=== PATIENT | male | born 1985 | race Caucasian/White ===

== ENCOUNTER 2021-06-30 18:56 | Emergency (ER) | payer OTHER ==
[2021-06-30] MEDS ORDERED: AUGMENTIN 875-1 EACH PO (19:32)
== END 2021-06-30 19:51 | disposition home or self-care (01) ==
LOC: ER1 18:56
DX: S81.852A Open bite, left lower leg, initial encounter (principal); S81.832A Puncture wound without foreign body, left lower leg, initial encounter; Z23 Encounter for immunization; W54.0XXA Bitten by dog, initial encounter
CPT/HCPCS: 90471; 90715; 99283

== ENCOUNTER 2021-11-17 03:51 | Inpatient (IN) | payer OTHER ==
[~2021-11-17] VITALS: Ht 170.2 cm; Wt 72.6 kg
[~2021-11-17 03:51] MED LIST: AUGMENTIN 875-1 EACH PO
[2021-11-17 06:19] LABS: HEMOGLOBIN 16.5 gm/dl (14.0-17.5); RED BLOOD COUNT 5.3 M/UL (4.20-5.50)
[2021-11-17 07:20] LABS: BUN/CREATININE RATIO 17 (0-10)
[2021-11-18 04:34] LABS: HEMOGLOBIN 15.7 gm/dl (14.0-17.5); RED BLOOD COUNT 5.11 M/UL (4.20-5.50)
[2021-11-18 04:35] LABS: WHITE BLOOD COUNT 10.5 K/UL (4.5-11.0)
[2021-11-18 04:55] LABS: BUN/CREATININE RATIO 20 (0-10)
[2021-11-19 04:08] LABS: HEMOGLOBIN 16.5 gm/dl (14.0-17.5); RED BLOOD COUNT 5.33 M/UL (4.20-5.50); WHITE BLOOD COUNT 11.8 K/UL (4.5-11.0)
[2021-11-19 04:42] LABS: BUN/CREATININE RATIO 20 (0-10)
[2021-11-20 02:53] LABS: RED BLOOD COUNT 5.41 M/UL (4.20-5.50); WHITE BLOOD COUNT 10.8 K/UL (4.5-11.0)
[2021-11-20 03:19] LABS: BUN/CREATININE RATIO 21 (0-10)
[2021-11-20] MEDS ORDERED: NICOTINE PATCH1 EACH TD (12:59)
[2021-11-20] MEDS ORDERED: HYDROCODON-ACE1 EAC4 PO (12:59)
[2021-11-21 05:59] LABS: RED BLOOD COUNT 5.76 M/UL (4.20-5.50); WHITE BLOOD COUNT 10.4 K/UL (4.5-11.0)
[2021-11-21 06:19] LABS: BUN/CREATININE RATIO 25 (0-10)
[2021-11-22 07:06] LABS: HEMOGLOBIN 16.9 gm/dl (14.0-17.5); RED BLOOD COUNT 5.38 M/UL (4.20-5.50); WHITE BLOOD COUNT 9.7 K/UL (4.5-11.0)
[2021-11-22 07:23] LABS: BUN/CREATININE RATIO 24 (0-10)
[2021-11-22] MEDS ORDERED: FAMOTIDINE20 MG PO (17:18)
== END 2021-11-22 18:30 | disposition home or self-care (01) | DRG 199 ==
LOC: ER1 03:51 → PROG CARE 06:39 → CDU 06:39 → PROG CARE 20:08
PROVIDERS: Family Medicine; Internal Medicine; Internal Medicine Pulmonary Disease; ADMIT Internal Medicine
PROC: 0W9B30Z Drainage of Left Pleural Cavity with Drainage Device, Percutaneous Approach (ICD-10-PCS; principal; 2021-11-17)
PROC: 0W9B30Z Drainage of Left Pleural Cavity with Drainage Device, Percutaneous Approach (ICD-10-PCS; 2021-11-20)
DX: J93.83 Other pneumothorax (principal); J96.01 Acute respiratory failure with hypoxia; Z20.822 Contact with and (suspected) exposure to COVID-19; F17.200 Nicotine dependence, unspecified, uncomplicated; Z83.3 Family history of diabetes mellitus; Z71.6 Tobacco abuse counseling
CPT/HCPCS: 36415; 36556; 71045; 71046; 71250; 80048; 80053; 82550; 82553; 82962; 83605; 83735; 83874; 83880; 84100; 84484; 85025; 85027; 85610; 85730; 86140; 93005; 96374; 96375; 99285; C1729; J0153; J1885; J2270; J2405; J7030; U0002

== ENCOUNTER 2021-11-25 09:44 | Inpatient (IN) | payer OTHER ==
[~2021-11-25] VITALS: Ht 167.6 cm; Wt 72.6 kg
[~2021-11-25 09:44] MED LIST changes: +FAMOTIDINE20 MG PO; +HYDROCODON-ACE1 EAC4 PO; +NICOTINE PATCH1 EACH TD
[2021-11-25 11:26] LABS: HEMOGLOBIN 16.2 gm/dl (14.0-17.5); RED BLOOD COUNT 5.18 M/UL (4.20-5.50); WHITE BLOOD COUNT 10.5 K/UL (4.5-11.0)
[2021-11-25 11:52] LABS: BUN/CREATININE RATIO 24 (0-10)
[2021-11-26 06:11] LABS: RED BLOOD COUNT 5.12 M/UL (4.20-5.50); WHITE BLOOD COUNT 8.7 K/UL (4.5-11.0)
[2021-11-26 06:38] LABS: BUN/CREATININE RATIO 21 (0-10)
== END 2021-11-26 12:28 | disposition home health service (06) | DRG 920 ==
LOC: ER1 09:44 → CDU 11:31 → MED SURG 4 15:10
PROVIDERS: Emergency Medicine; Physician Assistant; ADMIT Internal Medicine
PROC: 0WWB30Z Revision of Drainage Device in Left Pleural Cavity, Percutaneous Approach (ICD-10-PCS; principal; 2021-11-25)
DX: T85.698A Other mechanical complication of other specified internal prosthetic devices, implants and grafts, initial encounter (principal); J93.83 Other pneumothorax; Y83.8 Other surgical procedures as the cause of abnormal reaction of the patient, or of later complication, without mention of misadventure at the time of the procedure; Z20.822 Contact with and (suspected) exposure to COVID-19; F17.210 Nicotine dependence, cigarettes, uncomplicated; K59.00 Constipation, unspecified
CPT/HCPCS: 36415; 71045; 71046; 80048; 80053; 85025; U0002